=== PATIENT | male | born 1995 | race Caucasian/White ===

== ENCOUNTER 2020-07-27 17:14 | Inpatient (IN) ==
[2020-07-27] MEDS ORDERED: traZODone 50 MG TABLET PO PRN (20:27)
[2020-07-27] MEDS ORDERED: Acetaminophen 325 MG TABLET PO PRN (20:27)
[2020-07-27] MEDS ORDERED: haloperidoL 5 MG TABLET PO PRN (20:27)
[2020-07-27] MEDS ORDERED: *HR* LORazepam 2 MG/ML VIAL IM PRN (20:27)
[2020-07-27] MEDS ORDERED: *HR* LORazepam 1 MG TABLET PO PRN (20:27)
[2020-07-27] MEDS ORDERED: Haloperidol Lactate 5 MG/ML VIAL IM PRN (20:27)
[2020-07-27] MEDS ORDERED: MOM Conc 10 ML UD.LIQ PO PRN (20:27)
[2020-07-27] MEDS ORDERED: Mag Hydrox/Al Hydrox/Simeth 30 ML UDC PO PRN (20:27)
[2020-07-27] MEDS ORDERED: hydrOXYzine pamoate 25 MG CAPSULE PO PRN (20:27)
[2020-07-28] MEDS: methylPREDNISolone 4 MG TABLET PO SCH ×4 (08:53→20:14)
[2020-07-28] MEDS: Nicotine 21 MG PATCH.TD24 TD SCH (08:54)
[2020-07-28] MEDS ORDERED: levETIRAcetam 250 MG TABLET PO SCH (12:30)
[2020-07-28] MEDS: OXcarbazepine 150 MG TABLET PO SCH ×2 (13:14→20:13)
[2020-07-28] MEDS: Amoxicillin 500 MG CAPSULE PO SCH ×2 (13:15→20:14)
[2020-07-28] MEDS: GuaiFENesin/Dextromethorphan TABLET PO SCH ×2 (13:34→20:46)
[2020-07-28] MEDS: levETIRAcetam 250 MG TABLET PO SCH (13:34)
[2020-07-29] MEDS: GuaiFENesin/Dextromethorphan TABLET PO SCH ×2 (08:52→19:59)
[2020-07-29] MEDS: Amoxicillin 500 MG CAPSULE PO SCH ×2 (08:52→19:59)
[2020-07-29] MEDS: OXcarbazepine 150 MG TABLET PO SCH ×2 (08:53→20:02)
[2020-07-29] MEDS: levETIRAcetam 250 MG TABLET PO SCH (08:54)
[2020-07-29] MEDS: Nicotine 21 MG PATCH.TD24 TD SCH (08:54)
[2020-07-29] MEDS: methylPREDNISolone 4 MG TABLET PO SCH ×3 (12:22→19:59)
[2020-07-30] MEDS: Amoxicillin 500 MG CAPSULE PO SCH ×2 (08:53→20:38)
[2020-07-30] MEDS: methylPREDNISolone 4 MG TABLET PO SCH ×4 (08:54→20:37)
[2020-07-30] MEDS: GuaiFENesin/Dextromethorphan TABLET PO SCH ×2 (08:54→20:37)
[2020-07-30] MEDS: levETIRAcetam 250 MG TABLET PO SCH (08:54)
[2020-07-30] MEDS: OXcarbazepine 150 MG TABLET PO SCH ×2 (08:55→20:38)
[2020-07-30] MEDS: Nicotine 21 MG PATCH.TD24 TD SCH (08:55)
[2020-07-31] MEDS: GuaiFENesin/Dextromethorphan TABLET PO SCH ×2 (08:35→21:50)
[2020-07-31] MEDS: methylPREDNISolone 4 MG TABLET PO SCH ×3 (08:36→21:50)
[2020-07-31] MEDS: levETIRAcetam 250 MG TABLET PO SCH (08:36)
[2020-07-31] MEDS: Amoxicillin 500 MG CAPSULE PO SCH ×2 (08:37→21:50)
[2020-07-31] MEDS: Nicotine 21 MG PATCH.TD24 TD SCH (08:37)
[2020-07-31] MEDS: OXcarbazepine 150 MG TABLET PO SCH ×2 (08:37→21:50)
[2020-08-01] MEDS: OXcarbazepine 150 MG TABLET PO SCH ×2 (09:49→21:18)
[2020-08-01] MEDS: GuaiFENesin/Dextromethorphan TABLET PO SCH ×2 (09:49→21:18)
[2020-08-01] MEDS: Amoxicillin 500 MG CAPSULE PO SCH ×2 (09:50→21:18)
[2020-08-01] MEDS: levETIRAcetam 250 MG TABLET PO SCH (09:50)
[2020-08-01] MEDS: methylPREDNISolone 4 MG TABLET PO SCH ×2 (09:50→21:18)
[2020-08-01] MEDS: Nicotine 21 MG PATCH.TD24 TD SCH (09:50)
[2020-08-02] MEDS: methylPREDNISolone 4 MG TABLET PO SCH (08:53)
[2020-08-02] MEDS: GuaiFENesin/Dextromethorphan TABLET PO SCH (08:54)
[2020-08-02] MEDS: levETIRAcetam 250 MG TABLET PO SCH (08:54)
[2020-08-02] MEDS: Amoxicillin 500 MG CAPSULE PO SCH (08:54)
[2020-08-02] MEDS: Nicotine 21 MG PATCH.TD24 TD SCH (08:56)
[2020-08-02] MEDS: OXcarbazepine 150 MG TABLET PO SCH (08:56)
[2020-08-02 09:23] VITALS: BP 138/93
== END 2020-08-02 13:50 | disposition home or self-care (01) | DRG 753 ==
LOC: EMEROOARM 17:14 → 1ANU 20:24 → SUATTDRO 20:24 → 1ANU 21:10
PROVIDERS: ADMIT Psychiatry & Neurology Psychiatry; ATTEND Psychiatry & Neurology Forensic Psychiatry